=== PATIENT | male | born 1985 | race Caucasian/White ===

== ENCOUNTER 2016-09-15 08:15 | Emergency (ER) | payer BC, OTHER ==
[~2016-09-15 08:15] MED LIST: Nitroglycerin 0.4 MG TAB 1 EACH ONE
[2016-09-15] MEDS ORDERED: Nitroglycerin 0.4 MG TAB 1 EACH ONE (09:01)
[2016-09-15 09:12] LABS: #Basophils 0.1 thou/uL (0.0-0.2); #Eosinphils 0.1 thou/uL (0.0-0.7); #Lymphocytes 2.1 thou/uL (1.20-3.40); #Monocytes 0.4 thou/uL (0.11-0.59); #Neutrophils 3.2 thou/uL (1.40-6.50); %Basophils 1.1 % (0.0-1.0); %Eosinophils 1.7 % (0.0-10.0); %Lymphocytes 35.3 % (21.0-51.0); %Monocytes 7.4 % (0.0-10.0); %Neutrophils 54.5 % (42.0-75.0); Hemoglobin 16.4 g/dL (14.0-18.0); Mean Corpuscular HGB CONC 35.4 g/dL (32.0-36.0); Mean Corpuscular Hemoglobin 30.2 pg (27.0-31.0); Mean Corpuscular Volume 85.2 fl (80.0-94.0); Mean Platelet Volume 6.5 fL (7.4-10.4); Platelet Count 221 thou/uL (130-400); RBC Distribution Width 12.1 % (11.5-14.5); Red Blood Cell (RBC) Count 5.45 mill/uL (4.70-6.10)
[2016-09-15 09:13] LABS: INR-International Normal Ratio 1.1; PTT 24.1 SEC (22.9-36.1); Prothrombin Time 14.5 SEC (12.0-14.7)
[2016-09-15 09:26] LABS: ALT (SGPT) 33 U/L (8-55); AST (SGOT) 26 U/L (5-34); Albumin 4.1 g/dL (3.5-5.0); Alkaline Phosphatase 62 U/L (40-150); Anion Gap 16 mmol/L (10-20); BUN (Urea Nitrogen) 18 mg/dL (8.9-20.6); Bilirubin, Total 0.4 mg/dL (0.2-1.2); CK (CPK) 135 U/L (30-200); Calc. Creatinine Clearance 0 mL/min (70-130); Calcium 8.8 mg/dL (7.8-10.44); Carbon Dioxide 21 mmol/L (22-29); Chloride 106 mmol/L (98-107); Estimated GFR-MDRD 67; Globulin 2.6 g/dL (2.4-3.5); Glucose 97 mg/dL (70-105); Magnesium 2.3 mg/dL (1.6-2.6); Potassium 4.2 mmol/L (3.5-5.1); Protein, Total 6.7 g/dL (6.0-8.3); Sodium 139 mmol/L (136-145)
--- NOTE | 2016-09-15 09:28 | RAD ---
PORTABLE CHEST: DATE: 09/15/16. PROVIDED CLINICAL HISTORY: Chest pain. FINDINGS: Cardiac silhouette appears enlarged, which may be at least partially on the basis of portable techni que. No focal consolidation, pleural fluid, or pneumothorax apparent. IMPRESSION: No evidence for an acute cardiopulmonary process. POS: [facility]
[2016-09-15 09:33] LABS: CKMB 3.5 ng/mL (0-6.6); Troponin I 0.137 ng/mL (< 0.028)
[2016-09-15] MEDS ORDERED: Ondansetron HCl/PF 4 MG/2 ML Vial ONE (09:53)
== END 2016-09-15 10:25 | disposition short-term general hospital (02) ==
LOC: MADERS 08:15
DX: I20.0 Unstable angina (principal); K21.9 Gastro-esophageal reflux disease without esophagitis
CPT/HCPCS: 36415; 71010; 80053; 82550; 82553; 83735; 83880; 84484; 85025; 85610; 85730; 93005; 94760; 96374; 96375; J2270; J2405